=== PATIENT | female | born 1950 | race Caucasian/White ===

== ENCOUNTER → 2023-06-11 14:40 | Outpatient (REF) | payer MEDICARE, SELFPAY | LOC: RAD 14:40 | PROVIDERS: ATTENDING PHYSICIAN Internal Medicine; FAMILY PHYSICIAN Internal Medicine | DX: R22.41 Localized swelling, mass and lump, right lower limb (principal) | CPT/HCPCS: 73502; 73552 ==

== ENCOUNTER → 2023-06-20 11:39 | Outpatient (REF) | payer MEDICARE, SELFPAY ==
[2023-06-20 12:42] LABS: ALT (SGPT) 22 U/L (0-35); AST (SGOT) 23 U/L (14-36); Albumin 4.7 g/dl (3.5-5.0); Alkaline Phosphatase 55 U/L (38-126); Blood Urea Nitrogen 16 mg/dl (7-17); Calcium 9.9 mg/dl (8.4-10.2); Carbon Dioxide 25 mmol/L (22-30); Chloride 99 mmol/L (98-107); Glucose 90 mg/dl (70-99); Potassium 4.4 mmol/L (3.5-5.1); Sodium 132 mmol/L (135-145); Total Bilirubin 0.6 mg/dl (0.2-1.3); Total Protein 7.2 g/dl (6.3-8.2); eGFR > 60.00
== END ==
LOC: RAD 11:39
PROVIDERS: ATTENDING PHYSICIAN Nurse Practitioner
DX: R10.32 Left lower quadrant pain (principal)
CPT/HCPCS: 36415; 74177; 80053; Q9967

== ENCOUNTER 2023-06-20 23:55 | Emergency (ER) | payer MEDICARE, SELFPAY ==
[2023-06-21] VITALS: BP 119/72
[2023-06-21 00:01] VITALS: BP 119/72
[2023-06-21 00:09] VITALS: BMI 20.7
--- NOTE | 2023-06-21 00:10 | ED.GENMED ---
History of Present Illness
General
Chief Complaint: Allergic Reaction
Source: patient, records and previous radiology exam
Exam Limitations: none
Time Seen by Provider: 06/21/23 00:09
Nursing documentation reviewed up to this point in time: agreed with
Travel History
Have you had any contact with someone who has COVID-19?: No
Do you have any symptoms of coronavirus? Fever > 100 degrees, chills, cough, shortness of breath, sore throat, loss of taste or smell, muscle aches, or headache?: No
History of Present Illness
History of Present Illness:
72-year-old female took a dose of Augmentin for presumed diverticulitis prior to receiving the results of today's scan she was called states she did have diverticulitis, subsequently developed nausea vomiting loose stools she tells me that she was
very sweaty when she was on the toilet having diarrhea
She apparently has never had Augmentin apparently, no rash no fever chills no tongue swelling
Does admit to muscle cramping in her arms and legs
Past History
Past History
ED Past Medical History: HTN, Other (Irritable bowel syndrome, frequent severe muscle cramps, thrombocytosis, urinary frequency) and Other (atypical chest pain)
Social History
Tobacco: Non-smoker
Alcohol: Occasional
Drug: None
Living: with family
Employment: Employed
Family History
Family History: Other (Father with TIA)
Review of Systems
Review of Systems
All Other Systems: Not applicable
Constitutional: Denies fever or fatigue
Respiratory: Reports no symptoms
Cardiac: Reports no symptoms
ABD/GI: Reports abdominal pain, nausea and diarrhea
: Reports no symptoms
Musculoskeletal: Reports muscle stiffness
Phy Exam
Physical Exam
Physical Exam:
Physical Exam
General: no apparent distress, not acutely ill
Neck: No jaundice
Heart: s1/s2 regular rate and rhythm, no murmur. equal radial pulses.
Lungs: no acute respiratory distress. clear bilaterally
Abdomen: Nontender
Neuro: alert and oriented. no focal neurological deficits
Skin: no rash
Psychiatric: well kept. interactive and cooperative
Extremities: no edema.
Course
Orders/Labs/Results
Orders:
Orders
06/21/23 00:41
Electrocardiogram (*1) Urgent
Reason for Study: Chest Pain
EKG- Treatment ONCE
0.9% Sodium Chloride 1000 ml [Nss] 1,000 ml IV BOLUS
06/21/23 00:54
Complete Blood Count/With Diff Urgent
Comprehensive Metabolic Panel Urgent
Magnesium Urgent
Abnormal Lab Results
06/21/23
00:54
WBC 24.4 H 10^3/uL
(4.8-10.8)
Plt Count 529 H 10^3/uL
(130-400)
Abs Immat Gran (auto) 0.1 H 10^3/uL
(0-0.05)
Absolute Neuts (auto) 22.6 H 10^3/uL
(1.4-6.5)
Absolute Lymphs (auto) 0.5 L 10^3/uL
(1.2-3.4)
Absolute Monos (auto) 1.1 H 10^3/uL
(0.1-0.6)
Neutrophils % 92.7 H %
(42.2-75.2)
Lymphocytes % 1.9 L %
(20.5-51.1)
Sodium 134 L mmol/L
(135-145)
Carbon Dioxide 21 L mmol/L
(22-30)
Glucose 185 H mg/dl
(70-99)
Calcium 10.5 H mg/dl
(8.4-10.2)
Magnesium 2.4 H mg/dl
(1.6-2.3)
04/13/24 00:54
06/21/23 00:54
Vital Signs
Initial and Last Documented VS:
Initial Vital Signs
BP
119/72
06/21/23 00:00
Last Documented Vital Signs
Temp Pulse Resp BP Pulse Ox
97.7 F 75 16 101/64 97
06/21/23 00:01 06/21/23 01:13 06/21/23 01:13 06/21/23 01:13 06/21/23 01:13
MDM/Problems Addressed
Differential Diagnosis Includes:
ADR adverse drug reaction doubt allergic reaction no signs of diverticulitis by today's CAT scan possibly IBS
MDM/Problems Addressed:
Diarrhea abdominal cramping muscle
Chronic conditions affecting care:
IBS
*Radiology
Radiology exam reviewed: radiology read reviewed
*Pulse Oximetry
Patient hypoxic: no
*EKG
Interpreted by ED Provider?: Yes
Interpretation: abnormal
Comparison EKG: no comparison EKG present
Heart Rate: 84
Rate: normal
Rhythm: sinus
Ischemia: non-specific ST changes
*[employer] Interpretation
Rate: normal
Interpretation: normal
Heart Rate: 82
Rhythm: sinus
*Critical Care Note
Total Time (30-74mins, 75-104mins- exclusive of procedures): Not Applicable
Data Reviewed
Review of Other/Old Records Reveals: Radiology Studies
Source: patient
Update Note
Update Note:
1:20 AM update labs are noted white count noted perhaps stress reaction, perhaps related to diarrheal illness, given she had no acute pathology on CT from earlier today
EKG noted
1:50 AM patient feeling better abdomen is soft and nontender reviewed her labs with her clearly instructed to return to the ER if recurrent symptoms fever abdominal pain etc. patient's most pressing plaint is that she states she had muscle cramps
and spasm for 10 to 20 minutes which is not a new issue for her been on for years told by her PCP could be restless leg asking about a specialist she could see will refer her nonurgently to neurology
ED Attending Note
-
Portions of this chart may have been created with voice recognition software.� Occasional wrong word or��sound alike� substitutions may have occurred due to the inherent limitations of voice recognition software.
Discharge Plan
Departure
Patient Disposition: Home (Routine Discharge)
Date of Disposition: 06/21/23
Time of Disposition: 01:53
Patient with high blood pressure during this ER visit?: No
Condition: Good
Covid-19: Not Applicable
Discharge Problem:
Diarrhea, Cramps, muscle, general
Prescriptions:
No Action
vitamin D3-vitamin K2 (MK4) [K2 Plus D3] 1 EACH tablet
5,000 units PO DAILY
diphenhydramine HCl [Banophen] 25 MG capsule
25 mg PO HSPRN PRN (Reason: sleep)
Patient Comments:
alternates with tylenol pm
omega 6-ihg-yar-fish oil [Fish Oil] 1 EACH capsule
2 ea PO DAILY
cyanocobalamin (vitamin B-12) 100 MCG tablet
100 mcg PO DAILY 30 Days Qty: 30 0RF
atorvastatin 10 MG tablet
10 mg PO QPM
aspirin 81 MG tablet,delayed release (DR/EC)
81 mg PO DAILY
ferrous sulfate [iron] 325 MG tablet
325 mg PO DAILY
artificial tears(hypromellose) [Systane Gel] 10 GM gel
10 gm OP DIRECTED
denosumab [Prolia] 60 MG/ML syringe
60 mg SQ [id number]
oxybutynin chloride 5 MG tablet
5 mg PO TID
Referrals:
Andrew Claros MD [Family Provider] - Next open appointment
Bianca Rey DO [Active] - Next open appointment
Activity Restrictions/Additional Instructions:
Drink plenty of fluids, bland diet and eat yogurt or take a probiotic for the next few days
Stop Augmentin
Follow-up with your primary care provider and/or neurology to discuss your symptoms
Interventions
Interventions:
*Risk Screen - Suicide Last Done: 06/21/23 00:09
*General Assessment Last Done: 06/21/23 00:09
*Neglect/Abuse Screening Last Done: 06/21/23 00:09
ED- Fall Risk Assessment Last Done: 06/21/23 00:09
*ED COVID-19 Vaccine History Last Done: 06/21/23 00:09
ED- Cardiac Assessment Last Done: 06/21/23 00:09
ED- Pulmonary Assessment Last Done: 06/21/23 00:09
ED-Skin Assessment Last Done: 06/21/23 00:09
Discharge Date and Time
Print Language: SRI LANKAN
[2023-06-21] MEDS: NSS 1000 IV (00:56)
[2023-06-21 01:08] LABS: % Basophils 0.2 % (0-2); % Eosinophils 0.2 % (0-6); % Immature Granulocytes 0.5 % (0-0.5); % Lymphocytes 1.9 % (20.5-51.1); % Monocytes 4.5 % (1.7-9.3); % Neutrophils 92.7 % (42.2-75.2); Absolute Basophils 0.1 10^3/uL (0-0.2); Absolute Immature Granulocytes 0.1 10^3/uL (0-0.05); Absolute Lymphocytes 0.5 10^3/uL (1.2-3.4); Absolute Monocytes 1.1 10^3/uL (0.1-0.6); Absolute Neutrophils 22.6 10^3/uL (1.4-6.5); Hematocrit 43.6 % (37.0-47.0); Mean Corp Hgb Conc. 34.4 g/dL (33.0-37.0); Mean Corpuscular Hgb 30.2 pg (27.0-31.0); Mean Corpuscular Volume 87.7 fL (81.0-99.0); Mean Platelet Volume 8.7 fL (7.4-10.4); Nucleated Red Blood Cells % 0 %; Platelet Count 529 10^3/uL (130-400); Red Blood Cell Count 4.97 10^6/uL (4.20-5.40); Red Cell Dist. Width 13.1 % (11.5-14.5); White Blood Cell Count 24.4 10^3/uL (4.8-10.8)
[2023-06-21 01:13] VITALS: BP 101/64
[2023-06-21 01:21] LABS: ALT (SGPT) 21 U/L (0-35); AST (SGOT) 27 U/L (14-36); Alkaline Phosphatase 48 U/L (38-126); Blood Urea Nitrogen 15 mg/dl (7-17); Calcium 10.5 mg/dl (8.4-10.2); Carbon Dioxide 21 mmol/L (22-30); Chloride 99 mmol/L (98-107); Estimated Creatinine Clearance 64 ml/min; Glucose 185 mg/dl (70-99); Magnesium 2.4 mg/dl (1.6-2.3); Potassium 4.5 mmol/L (3.5-5.1); Sodium 134 mmol/L (135-145); Total Bilirubin 0.8 mg/dl (0.2-1.3); Total Protein 7.7 g/dl (6.3-8.2); eGFR > 60.00
[2023-06-21 02:00] VITALS: BP 128/71
== END 2023-06-21 02:10 | disposition home or self-care (01) ==
LOC: EMR 23:55
PROVIDERS: EMERGENCY PHYSICIAN Emergency Medicine; FAMILY PHYSICIAN Internal Medicine
DX: R19.7 Diarrhea, unspecified (principal); R25.2 Cramp and spasm; R10.9 Unspecified abdominal pain; R11.0 Nausea; K58.0 Irritable bowel syndrome with diarrhea
CPT/HCPCS: 99284; 96360; 80053; 83735; 85025; 93005

== ENCOUNTER → 2023-08-25 15:02 | Outpatient (REF) | payer MEDICARE, SELFPAY | LOC: MRI 3T 15:02 | PROVIDERS: ATTENDING PHYSICIAN Psychiatry & Neurology Neurology; PRIMARYCARE PHYSICIAN Internal Medicine | DX: G24.1 Genetic torsion dystonia (principal) | CPT/HCPCS: 72141 ==

== ENCOUNTER → 2023-12-31 09:08 | Outpatient (REF) | payer MEDICARE, SELFPAY ==
[2023-12-31 10:56] LABS: HDL Cholesterol 97 mg/dl; LDL Cholesterol, Calculated 111 mg/dl; Total Cholesterol 230 mg/dl (50-199); Triglyceride 112 mg/dl (10-149); Very Low Density Lipoprotein 22 mg/dl (0-30)
== END ==
LOC: REG 09:08
PROVIDERS: ATTENDING PHYSICIAN Internal Medicine Cardiovascular Disease; FAMILY PHYSICIAN Internal Medicine
DX: E78.5 Hyperlipidemia, unspecified (principal)
CPT/HCPCS: 36415; 80061

== ENCOUNTER → 2024-03-05 15:58 | Outpatient (REF) | payer MEDICARE, SELFPAY | LOC: HWWDC 15:58 | PROVIDERS: ATTENDING PHYSICIAN Nurse Practitioner; FAMILY PHYSICIAN Internal Medicine; REFERRING PHYSICIAN Obstetrics & Gynecology | DX: Z12.31 Encounter for screening mammogram for malignant neoplasm of breast (principal) | CPT/HCPCS: 77063; 77067 ==

== ENCOUNTER → 2024-03-19 10:26 | Outpatient (REF) | payer MEDICARE, SELFPAY | LOC: HWRAD 10:26 | PROVIDERS: ATTENDING PHYSICIAN Internal Medicine; FAMILY PHYSICIAN Internal Medicine; REFERRING PHYSICIAN Obstetrics & Gynecology | DX: M81.0 Age-related osteoporosis without current pathological fracture (principal); M85.89 Other specified disorders of bone density and structure, multiple sites | CPT/HCPCS: 77080 ==

== ENCOUNTER → 2024-04-23 12:57 | Outpatient (REF) | payer MEDICARE, SELFPAY ==
[2024-04-23 14:18] LABS: % Basophils 0.4 % (0-2); % Eosinophils 0.6 % (0-6); % Immature Granulocytes 0.3 % (0-0.5); % Lymphocytes 22.6 % (20.5-51.1); % Monocytes 7.9 % (1.7-9.3); % Neutrophils 68.2 % (42.2-75.2); Absolute Eosinophils 0.1 10^3/uL (0-0.7); Absolute Lymphocytes 2.3 10^3/uL (1.2-3.4); Absolute Monocytes 0.8 10^3/uL (0.1-0.6); Hematocrit 46.3 % (37.0-47.0); Hemoglobin 14.8 g/dL (12.0-16.0); Mean Corpuscular Hgb 30.2 pg (27.0-31.0); Mean Corpuscular Volume 94.5 fL (81.0-99.0); Nucleated Red Blood Cells % 0 %; Platelet Count 474 10^3/uL (130-400); Red Cell Dist. Width 13.6 % (11.5-14.5); White Blood Cell Count 10.2 10^3/uL (4.8-10.8)
[2024-04-23 15:32] LABS: ALT (SGPT) 32 U/L (0-35); AST (SGOT) 33 U/L (14-36); Albumin 4.9 g/dl (3.5-5.0); Alkaline Phosphatase 59 U/L (38-126); Blood Urea Nitrogen 18 mg/dl (7-17); Calcium 9.7 mg/dl (8.4-10.2); Carbon Dioxide 28 mmol/L (22-30); Chloride 99 mmol/L (98-107); Glucose 86 mg/dl (70-99); Potassium 4.8 mmol/L (3.5-5.1); Sodium 135 mmol/L (135-145); Total Bilirubin 0.4 mg/dl (0.2-1.3); Total Protein 7.6 g/dl (6.3-8.2); eGFR > 60.00
[2024-04-26 03:57] LABS: Beta-2-Microglobulin 2.1 mg/L (<=3.0)
== END ==
LOC: REG 12:57
PROVIDERS: ATTENDING PHYSICIAN Internal Medicine Hematology & Oncology; FAMILY PHYSICIAN Internal Medicine; OTHER PHYSICIAN Dermatology; OTHER PHYSICIAN Internal Medicine Cardiovascular Disease
DX: D47.2 Monoclonal gammopathy (principal); D51.9 Vitamin B12 deficiency anemia, unspecified; D50.9 Iron deficiency anemia, unspecified; D75.838 Other thrombocytosis
CPT/HCPCS: 36415; 80053; 82232; 82784; 83521; 84155; 84165; 85025; 85810; 86334

== ENCOUNTER → 2024-10-14 11:11 | Outpatient (REF) | payer MEDICARE, SELFPAY | LOC: HWRAD 11:11 | PROVIDERS: ATTENDING PHYSICIAN Nurse Practitioner | DX: R19.5 Other fecal abnormalities (principal) | CPT/HCPCS: 76700 ==

== ENCOUNTER → 2024-10-19 10:03 | Outpatient (REF) | payer MEDICARE, SELFPAY ==
[2024-10-19 11:59] LABS: Hematocrit 44.2 % (37.0-47.0); Hemoglobin 14.3 g/dL (12.0-16.0); Mean Corp Hgb Conc. 32.4 g/dL (33.0-37.0); Mean Corpuscular Volume 93.8 fL (81.0-99.0); Nucleated Red Blood Cells % 0 %; Platelet Count 499 10^3/uL (130-400); Red Cell Dist. Width 13.1 % (11.5-14.5)
[2024-10-19 12:36] LABS: ALT (SGPT) 18 U/L (0-35); AST (SGOT) 18 U/L (14-36); Albumin 4.3 g/dl (3.5-5.0); Alkaline Phosphatase 43 U/L (38-126); Amylase 51 U/L (30-110); Blood Urea Nitrogen 12 mg/dl (7-17); Calcium 9.2 mg/dl (8.4-10.2); Carbon Dioxide 28 mmol/L (22-30); Chloride 100 mmol/L (98-107); GGTP 23 U/L (12-43); Glucose 89 mg/dl (70-99); HDL Cholesterol 93 mg/dl; LDL Cholesterol, Calculated 125 mg/dl; Lipase 47 U/L (23-300); Potassium 4.7 mmol/L (3.5-5.1); Sodium 133 mmol/L (135-145); Total Protein 6.7 g/dl (6.3-8.2); Very Low Density Lipoprotein 18 mg/dl (0-30); eGFR > 60.00
[2024-10-19 12:45] LABS: C-Reactive Protein < 5.00 mg/L (0.0-10.00)
[2024-10-19 13:05] LABS: Free T3 3.36 pg/ml (2.77-5.27)
[2024-10-19 13:18] LABS: TSH 1.19 uIU/ml (0.47-4.68)
== END ==
LOC: REG 10:03
PROVIDERS: ATTENDING PHYSICIAN Nurse Practitioner
DX: D47.2 Monoclonal gammopathy (principal); E78.5 Hyperlipidemia, unspecified; G45.4 Transient global amnesia; Z82.49 Family history of ischemic heart disease and other diseases of the circulatory system; F41.9 Anxiety disorder, unspecified; D47.3 Essential (hemorrhagic) thrombocythemia; D69.6 Thrombocytopenia, unspecified
CPT/HCPCS: 36415; 80053; 80061; 82150; 82977; 83690; 84436; 84439; 84443; 84481; 85025; 85652; 86140

== ENCOUNTER → 2024-11-29 12:39 | Outpatient (REF) | payer MEDICARE, SELFPAY ==
[2024-11-29 13:14] LABS: Urine Character Clear (Clear)
[2024-11-29 14:22] LABS: Urine Red Blood Cell None Seen /HPF (0-2); Urine Squamous Cell 0-2 /LPF (Few); Urine White Cell None Seen /HPF (0-5)
== END ==
LOC: REG 12:39
PROVIDERS: ATTENDING PHYSICIAN Nurse Practitioner
DX: N30.00 Acute cystitis without hematuria (principal); R39.9 Unspecified symptoms and signs involving the genitourinary system
CPT/HCPCS: 81003; 81015; 87086

== ENCOUNTER → 2024-12-31 11:32 | Outpatient (REF) | payer MEDICARE, SELFPAY ==
[2024-12-31 13:08] LABS: ALT (SGPT) 23 U/L (0-35); AST (SGOT) 21 U/L (14-36); Albumin 4.4 g/dl (3.5-5.0); Alkaline Phosphatase 45 U/L (38-126); Blood Urea Nitrogen 18 mg/dl (7-17); Calcium 9.7 mg/dl (8.4-10.2); Carbon Dioxide 29 mmol/L (22-30); Chloride 101 mmol/L (98-107); Glucose 87 mg/dl (70-99); Potassium 5.5 mmol/L (3.5-5.1); Sodium 131 mmol/L (135-145); Total Protein 7.0 g/dl (6.3-8.2); eGFR > 60.00
[2024-12-31 13:24] LABS: Vitamin D, 25-OH*** 77.9 ng/mL (30-80)
== END ==
LOC: REG 11:32
PROVIDERS: ATTENDING PHYSICIAN Internal Medicine; FAMILY PHYSICIAN Internal Medicine; OTHER PHYSICIAN Nurse Practitioner Family
DX: M51.362 Other intervertebral disc degeneration, lumbar region with discogenic back pain and lower extremity pain (principal); M81.0 Age-related osteoporosis without current pathological fracture
CPT/HCPCS: 36415; 72100; 80053; 82306